=== PATIENT | female | born 1955 | race American Indian/Alaskan Native ===

== ENCOUNTER 2016-11-02 21:41 | Emergency (ER) | payer OTHER ==
[2016-11-02] MEDS ORDERED: CATAPRES ONE (22:45)
[2016-11-02] MEDS ORDERED: CATAPRES PO ONE (22:53)
[2016-11-02 23:37] LABS: Basophils % (Auto) 0.2 % (0.0-1.8); Hematocrit 37.3 % (30.3-42.9); Hemoglobin 12.1 gm/dl (10.1-14.3); Mean Corpuscular HGB Conc 32 % (30-34); Mean Corpuscular Volume 80 fl (79-97); Platelet Count 251 K/mm3 (140-440); Red Blood Count 4.68 M/mm3 (3.65-5.03)
[2016-11-02 23:40] LABS: Mean Corpuscular Hemoglobin 26 pg (28-32)
[2016-11-02 23:45] LABS: Bilirubin,Urine NEG (Negative); Blood,Urine NEG (Negative); Ketones,Urine NEG (Negative); Leukocyte Esterase,Urine NEG (Negative); Nitrite,Urine NEG (Negative); Protein,Urine <15 mg/dL mg/dL (Negative); Urobilinogen,Urine < 2.0 mg/dL (<2.0); WBC,Urine < 1.0 /HPF (0.0-6.0)
[2016-11-02 23:47] LABS: INR 1.01 (0.87-1.13)
[2016-11-02 23:48] LABS: Partial Thromboplastin Time 34.1 Sec. (24.2-36.6)
[2016-11-03 00:09] LABS: Alanine Aminotransferase 11 units/L (7-56); Albumin 4.4 g/dL (3.9-5); Albumin/Globulin Ratio 1.3 %; Alkaline Phosphatase 86 units/L (35-129); Anion Gap 15 mmol/L; BUN/Creatinine Ratio 24.61; Blood Urea Nitrogen 32 mg/dL (7-17); Calcium 9.4 mg/dL (8.4-10.2); Carbon Dioxide 32 mmol/L (22-30); Chloride 98.1 mmol/L (98-107); Glucose 122 mg/dL (65-100); Lipase 53 units/L (13-60); Potassium 3.1 mmol/L (3.6-5.0); Sodium 142 mmol/L (137-145); Total Protein 7.8 g/dL (6.3-8.2)
[2016-11-03 00:36] VITALS: BP 119/61
--- NOTE | 2016-11-04 10:53 | ED Elopement Review ---
ED Pt Elopement review - Results review Lab results: Laboratory Tests 11/02/16 11/02/16 11/02/16 23:24 23:24 23:24 WBC 6.0 RBC 4.68 Hgb 12.1 Hct 37.3 MCV 80 MCH 26 L MCHC 32 RDW 16.0 H Plt Count 251 Lymph % (Auto) 21.9 [place] % (Auto) 5.4 Eos % (Auto) 3.0 Baso % (Auto) 0.2 Lymph # 1.3 [place] # 0.3 Eos # 0.2 Baso # 0.0 Seg Neutrophils % 69.5 Seg Neutrophils # 4.2 PT 13.2 INR 1.01 APTT 34.1 Sodium 142 Chloride 98.1 Carbon Dioxide 32 H Anion Gap 15 BUN 32 H Creatinine 1.3 H Estimated GFR 51 BUN/Creatinine Ratio 24.61 Glucose 122 H Calcium 9.4 Total Bilirubin 0.20 AST 12 ALT 11 Alkaline Phosphatase 86 Troponin T < 0.010 Total Protein 7.8 Albumin 4.4 Albumin/Globulin Ratio 1.3 Lipase 53 Urine Color Urine Turbidity Urine pH Ur Specific [place] Urine Protein Urine Glucose (UA) Urine Ketones Urine Blood Urine Nitrite Urine Bilirubin Urine Urobilinogen Ur Leukocyte Esterase Urine WBC (Auto) Urine RBC (Auto) U Epithel Cells (Auto) 11/02/16 11/03/16 Unknown 01:30 WBC RBC Hgb Hct MCV MCH MCHC RDW Plt Count Lymph % (Auto) [place] % (Auto) Eos % (Auto) Baso % (Auto) Lymph # [place] # Eos # Baso # Seg Neutrophils % Seg Neutrophils # PT INR APTT Sodium Chloride Carbon Dioxide Anion Gap BUN Creatinine Estimated GFR BUN/Creatinine Ratio Glucose Calcium Total Bilirubin AST ALT Alkaline Phosphatase Troponin T < 0.010 Total Protein Albumin Albumin/Globulin Ratio Lipase Urine Color Colorless Urine Turbidity Clear Urine pH 7.0 Ur Specific [place] 1.010 Urine Protein <15 mg/dl Urine Glucose (UA) 50 Urine Ketones Neg Urine Blood Neg Urine Nitrite Neg Urine Bilirubin Neg Urine Urobilinogen < 2.0 Ur Leukocyte Esterase Neg Urine WBC (Auto) < 1.0 Urine RBC (Auto) 1.0 U Epithel Cells (Auto) 1.0 - Call Back decision Pt Call Back Decision: Call pt to return to ED [facility] (BP [id number])
== END 2016-11-03 04:20 | disposition left against medical advice (07) ==
LOC: ED 21:41
DX: R10.9 Unspecified abdominal pain (principal); R11.2 Nausea with vomiting, unspecified; I10 Essential (primary) hypertension; D86.9 Sarcoidosis, unspecified; Z91.041 Radiographic dye allergy status; Z53.21 Procedure and treatment not carried out due to patient leaving prior to being seen by health care provider
CPT/HCPCS: 36415; 80053; 81001; 83690; 84484; 85025; 85610; 85730; 93005; 93010

== ENCOUNTER 2016-12-04 12:58 | Emergency (ER) | payer OTHER ==
[2016-12-04 14:00] LABS: Basophils % (Auto) 0.4 % (0.0-1.8); Eosinophils % (Auto) 5.3 % (0.0-4.3); Hematocrit 37.9 % (30.3-42.9); Hemoglobin 12.3 gm/dl (10.1-14.3); Mean Corpuscular HGB Conc 33 % (30-34); Mean Corpuscular Volume 80 fl (79-97); Platelet Count 267 K/mm3 (140-440); Red Blood Count 4.77 M/mm3 (3.65-5.03); White Blood Count 5.5 K/mm3 (4.5-11.0)
[2016-12-04 14:03] LABS: Mean Corpuscular Hemoglobin 26 pg (28-32)
[2016-12-04 14:16] LABS: Albumin 4.6 g/dL (3.9-5); Albumin/Globulin Ratio 1.3 %; BUN/Creatinine Ratio 26.66; Bilirubin,Total 0.4 mg/dL (0.1-1.2); Calcium 9.8 mg/dL (8.4-10.2); Chloride 100.5 mmol/L (98-107); Potassium 3.5 mmol/L (3.6-5.0); Total Protein 8.1 g/dL (6.3-8.2)
[2016-12-04 15:16] LABS: Bilirubin,Urine NEG (Negative); Blood,Urine NEG (Negative); Ketones,Urine NEG (Negative); Leukocyte Esterase,Urine NEG (Negative); Mucus,Urine FEW /HPF; Nitrite,Urine NEG (Negative); Protein,Urine <15 mg/dL mg/dL (Negative); Urobilinogen,Urine < 2.0 mg/dL (<2.0); WBC,Urine < 1.0 /HPF (0.0-6.0)
[2016-12-04] MEDS ORDERED: NORMODYNE IV ONE (16:52)
--- NOTE | 2016-12-04 17:17 | Emergency Department Report ---
HPI - General Chief Complaint: Abdominal Pain Time Seen by Provider: 12/04/16 16:45 - HPI HPI: This is a 61 year-old female presents to the emergency department home with a complaint of some lower abdominal pain that has really been going on for the past 3 months but worsened this morning. However the patient had a good bowel movement last night and again this morning and since that time she is currently denying any abdominal discomfort. She denies any nausea, vomiting, fever, back pain, dysuria, vaginal bleeding or discharge. She has a past medical history of hypertension and diverticulosis. She did not take anything for her symptoms her presentation. No recent travel or sick contacts at home. Primary care physician is Dr. Leonel Hines at [facility]. ED Past Medical Hx - Past Medical History Previous Medical History?: Yes Hx Hypertension: Yes Additional medical history: sarcoidosis. Diverticulitis - Surgical History Past Surgical History?: Yes Additional Surgical History: hysterectomy - Social History Smoking Status: Never Smoker Substance Use Type: Alcohol, Prescribed - Medications Home Medications: Home Medications Medication Instructions Recorded Confirmed Last Taken Type Hydrochlorothiazide [HCTZ] 25 mg PO QDAY #30 tablet 05/19/15 Unknown Rx Lisinopril [Zestril TAB] 20 mg PO QDAY #90 tablet 05/19/15 Unknown Rx Docusate Sodium [Colace] 100 mg PO BID PRN #20 capsule 12/04/16 Unknown Rx Magnesium Citrate [Citrate of 300 ml PO NOW #1 bottle 12/04/16 Unknown Rx Magnesia] ED Review of Systems ROS: Stated complaint: ABD PAIN/BACK PAIN Other details as noted in HPI Comment: All other systems reviewed and negative Constitutional: denies: chills, fever Eyes: denies: eye pain, eye discharge, vision change ENT: denies: ear pain, throat pain Respiratory: denies: cough, shortness of breath, wheezing Cardiovascular: denies: chest pain, palpitations Gastrointestinal: abdominal pain. denies: vomiting Genitourinary: denies: dysuria, discharge Musculoskeletal: denies: joint swelling, arthralgia Skin: denies: rash, lesions Neurological: denies: headache, weakness, paresthesias Physical Exam - Physical Exam Vital Signs: Vital Signs 12/04/16 12/04/16 12/04/16 13:26 14:43 16:57 Temperature 98.5 F 98.6 F 97.9 F Pulse Rate 74 91 H Respiratory 20 12 Rate Blood Pressure 189/121 Blood Pressure 184/92 204/107 [Left] O2 Sat by Pulse 100 92 Oximetry Physical Exam: GENERAL: The patient is well-developed well-nourished. HEENT: Normocephalic. Atraumatic. Extraocular motions are intact. Patient has moist mucous membranes. Pupils equal reactive to light bilaterally. NECK: Supple. Trachea is midline. CHEST/LUNGS: Clear to auscultation. There is no respiratory distress noted. HEART/CARDIOVASCULAR: Regular. There is no tachycardia. There is no gallop rub or murmur. ABDOMEN: Abdomen is soft, nontender. No guarding rebound tenderness. Patient has normal bowel sounds. There is no abdominal distention. SKIN: Skin is warm and dry. NEURO: The patient is awake, alert, and oriented. The patient is cooperative. The patient has no focal neurologic deficits. The patient has normal speech. MUSCULOSKELETAL: There is no tenderness or deformity. There is no limitation range of motion. There is no evidence of acute injury. ED Course Vital Signs 12/04/16 12/04/16 12/04/16 13:26 14:43 16:57 Temperature 98.5 F 98.6 F 97.9 F Pulse Rate 74 91 H Respiratory 20 12 Rate Blood Pressure 189/121 Blood Pressure 184/92 204/107 [Left] O2 Sat by Pulse 100 92 Oximetry ED Medical Decision Making - Lab Data Result diagrams: 12/04/16 13:45 12/04/16 13:45 - Radiology Data Radiology results: image reviewed interpreted by me: Abdominal x-ray shows nonobstructive nonspecific bowel gas. - Medical Decision Making 61-year-old female presents to emergency department with the complaint of some abdominal pain that seemed to improve last night and resolved earlier today after having a satieting in bowel movement. Labs are mostly unremarkable and do not show any etiology of the patient's symptoms. Vital signs stable throughout ED course. Abdominal x-ray shows nonspecific nonobstructive bowel gas. Patient has not had any abdominal pain since I had seen her in the emergency department. For these reasons patient appears safe for discharge home at this time. She will follow-up with her primary care physician and will return to the ER with any worsening of her symptoms or any acute distress. The patient did present with some elevated blood pressure but came down to a more reasonable level with one dose of antihypertensive. The patient has yet to take her nighttime blood pressure medications. For this reason she will be discharged home with her elevated blood pressure to take her medications and has been encouraged to return to the ER with any worsening of her symptoms or any acute distress. - Differential Diagnosis constipation, colitis, bowel obstruction, diverticulitis Critical Care Time: No Critical care attestation.: If time is entered above; I have spent that time in minutes in the direct care of this critically ill patient, excluding procedure time. ED Disposition Clinical Impression: Increased stool volume Hypertension Qualifiers: Hypertension type: essential hypertension Qualified Code(s): I10 - Essential ( primary) hypertension Abdominal pain Qualifiers: Abdominal location: generalized Qualified Code(s): R10.84 - Generalized abdominal pain Disposition: TO HOME OR SELFCARE Is pt being admited?: No Condition: Stable Instructions: Constipation (ED), Abdominal Pain (ED), Hypertension (ED) Additional Instructions: Please follow-up with your primary care physician in the next few days. Go home and take your nighttime blood pressure medication. Keep a blood pressure log. Try to stay with from foods that are high in salt and caffeinated products. Return to the emergency Department with any worsening of her symptoms or any acute distress. Prescriptions: Docusate Sodium [Colace] 100 mg PO BID PRN #20 capsule PRN Reason: Constipation Magnesium Citrate [Citrate of Magnesia] 300 ml PO NOW #1 bottle Referrals: LEONEL HINES MD [Primary Care Provider] - 3-5 Days Time of Disposition: 18:15
[2016-12-04 18:42] VITALS: BP 183/89
--- NOTE | 2016-12-05 07:30 | XRay Report ---
ABDOMEN, 2 views: History: Abdominal pain. There is no evidence of free air beneath the diaphragms. The gas pattern within the abdomen is unremarkable. There is no evidence of bowel dilatation, significant air-fluid levels, or pathologic calcifications. Organ shadows are unremarkable. There is moderate fecal matter throughout the colon. IMPRESSION: Mild constipation.
== END 2016-12-04 18:41 | disposition home or self-care (01) ==
LOC: ED 12:58
DX: R10.84 Generalized abdominal pain (principal); I10 Essential (primary) hypertension; R19.5 Other fecal abnormalities; D86.9 Sarcoidosis, unspecified; K57.92 Diverticulitis of intestine, part unspecified, without perforation or abscess without bleeding; Z90.710 Acquired absence of both cervix and uterus
CPT/HCPCS: 36415; 74020; 80053; 81001; 83690; 85025; 96374; 99284

== ENCOUNTER 2018-07-10 11:05 | Emergency (ER) | payer SELFPAY ==
--- NOTE | 2018-07-10 11:14 | Emergency Department Report ---
Blank Doc - Documentation Documentation: This is a 62-year-old female that presents with headache with blurry vision and dizziness. Stated was seen in PCP and was sent to the ED for high blood pressure. Exam: no facial drooping. Normal neuro exam. This initial assessment/diagnostic orders/clinical plan/treatment(s) is/are subject to change based on patient's health status, clinical progression and re- assessment by fellow clinical providers in the ED. Further treatment and workup at subsequent clinical providers discretion. Patient/guardians urged not to elope from the ED as their condition may be serious if not clinically assessed and managed. Initial orders include: 1- Patient sent to MAIN ED for further evaluation and treatment 2- labs 3- CT head
[2018-07-10] MEDS ORDERED: TORADOL IV ONE (12:04)
[2018-07-10] MEDS ORDERED: CATAPRES PO ONE (12:04)
--- NOTE | 2018-07-10 12:07 | Cat Scan Report ---
CT HEAD WITHOUT CONTRAST: HISTORY: Headache. TECHNIQUE: Sequential 2.5mm CT images. COMPARISON: None. FINDINGS: Cerebral Parenchyma: Within normal limits. Cerebellum: Within normal limits. Brainstem: Within normal limits. Ventricles: Normal. Sella: Normal. Extra-axial spaces: Normal. Basal Cisterns: Normal. Intracranial Hemorrhage: None. Midline Shift: None. Calvarium: Normal. Sinuses: Normal. Mastoid Air Cells: The right mastoid air cells and right middle ear are opacified with fluid. No obvious fracture or bony destruction. The left mastoid air cells are well aerated. Visualized Orbits: Normal. IMPRESSION: No acute intracranial process. Unremarkable CT of the brain parenchyma. Fluid in the right mastoid air cells and right middle ear. Correlate with the patient.
[2018-07-10 12:23] LABS: Bilirubin,Urine NEG (Negative); Blood,Urine NEG (Negative); Color,Urine Straw (Yellow); Urobilinogen,Urine < 2.0 mg/dL (<2.0); WBC,Urine < 1.0 /HPF (0.0-6.0)
--- NOTE | 2018-07-10 12:27 | Emergency Department Report ---
ED Headache HPI - General Chief Complaint: High BP Stated Complaint: HBP Time Seen by Provider: 07/10/18 11:12 Source: patient Exam Limitations: no limitations - History of Present Illness Initial Comments: 62-year-old female with past medical history of hypertension and sarcoidosis presents to the hospital complaining of uncontrolled hypertension, headache, and chest pain. Patient has had an intermittent aching frontal headache for the past 2 days. Patient did have a fall 2 days ago but headache preceding fall. She denies head injury, syncope, or LOC. Patient did fall, right side and since she has had right-sided chest pain with palpation since fall and intermittent mid chest pain with coughing episodes only. She denies shortness of breath, nausea, vomiting, diaphoresis, or focal weakness. She does complain of some mild blurred vision. Patient's been noncompliant with blood pressure medications times one year due to lack of insurance. She went to [facility] today for evaluation due to symptoms and was sent to the ER due to elevated BP. Allergies/Adverse Reactions: Allergies Contrast dye Allergy (Uncoded 05/19/15 17:01) Itching Home Medications: Ambulatory Orders Lisinopril [Zestril TAB] 20 mg PO QDAY #90 tablet 05/19/15 hydroCHLOROthiazide [HCTZ] 25 mg PO QDAY #30 tablet 05/19/15 Docusate Sodium [Colace] 100 mg PO BID PRN #20 capsule 12/04/16 Magnesium Citrate [Citrate of Magnesia] 300 ml PO NOW #1 bottle 12/04/16 Ibuprofen [Motrin] 600 mg PO Q8H PRN #20 tablet 07/10/18 amLODIPine [Norvasc] 10 mg PO DAILY #30 tab 07/10/18 ED Review of Systems ROS: Stated complaint: HBP Other details as noted in HPI Comment: All other systems reviewed and negative ED Past Medical Hx - Past Medical History Previous Medical History?: Yes Hx Hypertension: Yes Additional medical history: sarcoidosis. Diverticulitis - Surgical History Past Surgical History?: Yes Additional Surgical History: hysterectomy - Social History Smoking Status: Never Smoker Substance Use Type: None - Medications Home Medications: Home Medications Medication Instructions Recorded Confirmed Last Taken Type Lisinopril [Zestril TAB] 20 mg PO QDAY #90 tablet 05/19/15 Unknown Rx hydroCHLOROthiazide [HCTZ] 25 mg PO QDAY #30 tablet 05/19/15 Unknown Rx Docusate Sodium [Colace] 100 mg PO BID PRN #20 capsule 12/04/16 Unknown Rx Magnesium Citrate [Citrate of 300 ml PO NOW #1 bottle 12/04/16 Unknown Rx Magnesia] Ibuprofen [Motrin] 600 mg PO Q8H PRN #20 tablet 07/10/18 Unknown Rx amLODIPine [Norvasc] 10 mg PO DAILY #30 tab 07/10/18 Unknown Rx ED Physical Exam - General Limitations: No Limitations - Other Other exam information: General: No limitations, patient is alert in no acute distress Head exam: Atraumatic, normocephalic Eyes exam: Normal appearance, pupils equal reactive to light, extraocular movements intact ENT: Moist mucous membrane, normal oropharynx Neck exam: Normal inspection, full range of motion, no meningismus nontender Respiratory exam: Clear to auscultation bilateral, no wheezes, rales, crackles Cardiovascular: Normal rate and rhythm, right-sided chest wall tenderness Abdomen: Soft, nondistended, and nontender, with normal bowel sounds, no rebound, or guarding Extremity: Full range of motion normal inspection no deformity Back: Normal Inspection, full range of motion, no tenderness Neurologic: Alert, oriented x3, cranial nerves intact, no motor or sensory deficit Psychiatric: normal affect, normal mood Skin: Warm, dry, intact ED Course Vital Signs 07/10/18 07/10/18 07/10/18 11:13 11:25 11:31 Temperature 97.6 F Pulse Rate 94 H 90 87 Respiratory 18 23 Rate Blood Pressure 233/119 Blood Pressure 233/129 [Right] O2 Sat by Pulse 98 100 Oximetry 07/10/18 07/10/18 07/10/18 12:01 12:15 12:31 Temperature Pulse Rate 99 H 87 88 Respiratory 19 15 15 Rate Blood Pressure 233/119 209/119 200/101 Blood Pressure [Right] O2 Sat by Pulse 100 99 98 Oximetry 07/10/18 07/10/18 07/10/18 12:45 13:01 13:15 Temperature Pulse Rate 76 69 79 Respiratory 14 13 17 Rate Blood Pressure 202/106 149/98 141/83 Blood Pressure [Right] O2 Sat by Pulse 99 99 98 Oximetry ED Medical Decision Making - Lab Data Result diagrams: 07/10/18 12:04 07/10/18 12:04 Lab Results 07/10/18 07/10/18 07/10/18 Range/Units 11:18 12:04 12:04 WBC 7.4 (4.5-11.0) K/mm3 RBC 4.99 (3.65-5.03) M/mm3 Hgb 12.5 (10.1-14.3) gm/dl Hct 37.6 (30.3-42.9) % MCV 75 L (79-97) fl MCH 25 L (28-32) pg MCHC 33 (30-34) % RDW 14.7 (13.2-15.2) % Plt Count 336 (140-440) K/mm3 Lymph % (Auto) 22.5 (13.4-35.0) % [place] % (Auto) 7.1 (0.0-7.3) % Eos % (Auto) 13.6 H (0.0-4.3) % Baso % (Auto) 0.7 (0.0-1.8) % Lymph # 1.7 (1.2-5.4) K/mm3 [place] # 0.5 (0.0-0.8) K/mm3 Eos # 1.0 H (0.0-0.4) K/mm3 Baso # 0.1 (0.0-0.1) K/mm3 Seg Neutrophils % 56.1 (40.0-70.0) % Seg Neutrophils # 4.1 (1.8-7.7) K/mm3 Sodium 140 (137-145) mmol/L Potassium 3.4 L (3.6-5.0) mmol/L Chloride 96.1 L (98-107) mmol/L Carbon Dioxide 29 (22-30) mmol/L Anion Gap 18 mmol/L BUN 16 (7-17) mg/dL Creatinine 0.8 (0.7-1.2) mg/dL Estimated GFR > 60 ml/min BUN/Creatinine Ratio 20 % Glucose 109 H (65-100) mg/dL POC Glucose 104 (70-105) Calcium 9.5 (8.4-10.2) mg/dL Total Bilirubin 0.30 (0.1-1.2) mg/dL Direct Bilirubin < 0.2 (0-0.2) mg/dL Indirect Bilirubin 0.1 mg/dL AST 18 (5-40) units/L ALT 10 (7-56) units/L Alkaline Phosphatase 80 (35-129) units/L Total Creatine Kinase (30-135) units/L CK-MB (CK-2) (0.0-4.0) ng/mL CK-MB (CK-2) Rel Index (0-4) Troponin T (0.00-0.029) ng/mL Total Protein 7.8 (6.3-8.2) g/dL Albumin 3.7 L (3.9-5) g/dL Albumin/Globulin Ratio 0.9 % Urine Color (Yellow) Urine Turbidity (Clear) Urine pH (5.0-7.0) Ur Specific [place] Gap (1.003-1.030) Urine Protein (Negative) mg/dL Urine Glucose (UA) (Negative) mg/dL Urine Ketones (Negative) mg/dL Urine Blood (Negative) Urine Nitrite (Negative) Urine Bilirubin (Negative) Urine Urobilinogen (<2.0) mg/dL Ur Leukocyte Esterase (Negative) Urine WBC (Auto) (0.0-6.0) /HPF Urine RBC (Auto) (0.0-6.0) /HPF U Epithel Cells (Auto) (0-13.0) /HPF 07/10/18 07/10/18 Range/Units 12:06 12:10 WBC (4.5-11.0) K/mm3 RBC (3.65-5.03) M/mm3 Hgb (10.1-14.3) gm/dl Hct (30.3-42.9) % MCV (79-97) fl MCH (28-32) pg MCHC (30-34) % RDW (13.2-15.2) % Plt Count (140-440) K/mm3 Lymph % (Auto) (13.4-35.0) % [place] % (Auto) (0.0-7.3) % Eos % (Auto) (0.0-4.3) % Baso % (Auto) (0.0-1.8) % Lymph # (1.2-5.4) K/mm3 [place] # (0.0-0.8) K/mm3 Eos # (0.0-0.4) K/mm3 Baso # (0.0-0.1) K/mm3 Seg Neutrophils % (40.0-70.0) % Seg Neutrophils # (1.8-7.7) K/mm3 Sodium (137-145) mmol/L Potassium (3.6-5.0) mmol/L Chloride (98-107) mmol/L Carbon Dioxide (22-30) mmol/L Anion Gap mmol/L BUN (7-17) mg/dL Creatinine (0.7-1.2) mg/dL Estimated GFR ml/min BUN/Creatinine Ratio % Glucose (65-100) mg/dL POC Glucose (70-105) Calcium (8.4-10.2) mg/dL Total Bilirubin (0.1-1.2) mg/dL Direct Bilirubin (0-0.2) mg/dL Indirect Bilirubin mg/dL AST (5-40) units/L ALT (7-56) units/L Alkaline Phosphatase (35-129) units/L Total Creatine Kinase 75 (30-135) units/L CK-MB (CK-2) 1.8 (0.0-4.0) ng/mL CK-MB (CK-2) Rel Index 2.4 (0-4) Troponin T < 0.010 (0.00-0.029) ng/mL Total Protein (6.3-8.2) g/dL Albumin (3.9-5) g/dL Albumin/Globulin Ratio % Urine Color Straw (Yellow) Urine Turbidity Clear (Clear) Urine pH 7.0 (5.0-7.0) Ur Specific [place] 1.011 (1.003-1.030) Urine Protein 30 mg/dl (Negative) mg/dL Urine Glucose (UA) 50 (Negative) mg/dL Urine Ketones Tr (Negative) mg/dL Urine Blood Neg (Negative) Urine Nitrite Neg (Negative) Urine Bilirubin Neg (Negative) Urine Urobilinogen < 2.0 (<2.0) mg/dL Ur Leukocyte Esterase Neg (Negative) Urine WBC (Auto) < 1.0 (0.0-6.0) /HPF Urine RBC (Auto) 1.0 (0.0-6.0) /HPF U Epithel Cells (Auto) < 1.0 (0-13.0) /HPF - EKG Data -: EKG Interpreted by Pr EKG shows normal: sinus rhythm, axis (qrs 10), QRS complexes (qrsd 87), ST-T waves (no stemi/t inv) Rate: normal (92) - Radiology Data Radiology results: report reviewed CT HEAD WITHOUT CONTRAST: HISTORY: Headache. TECHNIQUE: Sequential 2.5mm CT images. COMPARISON: None. FINDINGS: Cerebral Parenchyma: Within normal limits. Cerebellum: Within normal limits. Brainstem: Within normal limits. Ventricles: Normal. Sella: Normal. Extra-axial spaces: Normal. Basal Cisterns: Normal. Intracranial Hemorrhage: None. Midline Shift: None. Calvarium: Normal. Sinuses: Normal. Mastoid Air Cells: The right mastoid air cells and right middle ear are opacified with fluid. No obvious fracture or bony destruction. The left mastoid air cells are well aerated. Visualized Orbits: Normal. IMPRESSION: No acute intracranial process. Unremarkable CT of the brain parenchyma. Fluid in the right mastoid air cells and right middle ear. Correlate with the patient. AP CHEST: HISTORY: Chest pain, cough AP view of the chest demonstrates a normal mediastinal and cardiac contour with clear lungs and normal bony and soft tissue structures. IMPRESSION: Unremarkable AP chest. - Medical Decision Making Patient feeling better with ED treatment Patient presents to the hospital with hypertension secondary the case noncompliant and headache. CT head without acute abnormalities. Nonfocal neurologic exam. Patient BP improved with clonidine. Patient has reproducible chest wall pain started after fall. On today's EKG compared to previous with negative troponin and chest x-ray. She'll be discharged home with pain medication and BP medication. Follow-up with PMD encouraged. - Differential Diagnosis hypertensive headache, ICH, hypertensive emergency, mi Critical Care Time: No Critical care attestation.: If time is entered above; I have spent that time in minutes in the direct care of this critically ill patient, excluding procedure time. ED Disposition Clinical Impression: Uncontrolled hypertension, Headache, Chest wall pain, Noncompliance with medication regimen Disposition: DC-01 TO HOME OR SELFCARE Is pt being admited?: No Does the pt Need Aspirin: No Condition: Stable Instructions: Hypertension (ED), Acute Headache (ED), Thoracic Pain (ED) Additional Instructions: Take the medication as prescribed. Follow up with your doctor or the c linic/doctor provided. Return if symptoms worsen as indicated by your discharge instructions Prescriptions: Ibuprofen [Motrin] 600 mg PO Q8H PRN #20 tablet PRN Reason: Pain amLODIPine [Norvasc] 10 mg PO DAILY #30 tab Referrals: PRIMARY CARE, [Primary Care Provider] - 3-5 Days [facility] [Provider Group] - 3-5 Days Time of Disposition: 13:57
[2018-07-10 12:45] LABS: Creatine Kinase MB 1.8 ng/mL (0.0-4.0)
[2018-07-10 12:48] LABS: Alanine Aminotransferase 10 units/L (7-56); Albumin 3.7 g/dL (3.9-5); BUN/Creatinine Ratio 20; Blood Urea Nitrogen 16 mg/dL (7-17); Calcium 9.5 mg/dL (8.4-10.2); Hemolysis Index 16
--- NOTE | 2018-07-10 12:50 | XRay Report ---
AP CHEST: HISTORY: Chest pain, cough AP view of the chest demonstrates a normal mediastinal and cardiac contour with clear lungs and normal bony and soft tissue structures. IMPRESSION: Unremarkable AP chest.
[2018-07-10 13:05] LABS: Bilirubin,Direct < 0.2 mg/dL (0-0.2)
[2018-07-10 13:09] LABS: Basophils # (Auto) 0.1 K/mm3 (0.0-0.1); Basophils % (Auto) 0.7 % (0.0-1.8); Eosinophils % (Auto) 13.6 % (0.0-4.3); Hematocrit 37.6 % (30.3-42.9); Hemoglobin 12.5 gm/dl (10.1-14.3); Lymphocytes # (Auto) 1.7 K/mm3 (1.2-5.4); Lymphocytes % (Auto) 22.5 % (13.4-35.0); Mean Corpuscular HGB Conc 33 % (30-34); Mean Corpuscular Volume 75 fl (79-97); Monocytes # (Auto) 0.5 K/mm3 (0.0-0.8); Monocytes % (Auto) 7.1 % (0.0-7.3); Platelet Count 336 K/mm3 (140-440); Red Blood Count 4.99 M/mm3 (3.65-5.03); Red Cell Distribution Width 14.7 % (13.2-15.2)
[2018-07-10 13:21] VITALS: BP 141/83
[2018-07-10] MEDS ORDERED: K-DUR PO ONE (13:31)
== END 2018-07-10 14:22 | disposition home or self-care (01) ==
LOC: ED 11:05
DX: I10 Essential (primary) hypertension (principal); R07.89 Other chest pain; Z91.14 Patient's other noncompliance with medication regimen; Z90.710 Acquired absence of both cervix and uterus; Z91.041 Radiographic dye allergy status
CPT/HCPCS: 36415; 70450; 71045; 80048; 80076; 81001; 82550; 82553; 82962; 84484; 85025; 93005; 93010; 96374; 99284; J1885